=== PATIENT | female | born 1965 | race Caucasian/White ===

== ENCOUNTER 2024-12-16 01:52 | Emergency (ER) | payer SELFPAY ==
[~2024-12-16] VITALS: Ht 167.6 cm; Wt 64.0 kg
[2024-12-16 02:28] VITALS: TEMP 36.6; O2SAT 97
[2024-12-16] MEDS ORDERED: IBUP-2029 MT (05:50)
[2024-12-16] MEDS: KETOROLAC 30MG/ML VIAL IM ONE (05:51)
[2024-12-16 06:03] VITALS: BP 144/80; PULSE 65; RESP 20; O2SAT 99
== END 2024-12-16 06:05 | disposition home or self-care (01) ==
LOC: ER 01:52
DX: S63.282A Dislocation of proximal interphalangeal joint of right middle finger, initial encounter (principal); I10 Essential (primary) hypertension; W22.03XA Walked into furniture, initial encounter; Y93.89 Activity, other specified; Y92.89 Other specified places as the place of occurrence of the external cause; Y99.8 Other external cause status
CPT/HCPCS: 99284; 26770; 73130; J1885